=== PATIENT | male | born 1980 ===

== ENCOUNTER 2020-01-02 01:53 | Emergency (ER) | payer SELFPAY ==
--- NOTE | 2020-01-02 01:56 | ED_ITS ---
HPI - General Adult <Bhavesh Silva DO - Last Filed: 01/03/20 22:59> General Chief complaint: Altered Mental Status Stated complaint: doesn't know where he is at/low energy Time Seen by Provider: 01/02/20 01:55 Source: patient Mode of arrival: Wheelchair Limitations: no limitations History of Present Illness HPI narrative: 39-year-old male nonsmoker and nondrinker without any known medical problems was dropped off at the ER entrance and states that he does not know where he is, feels very weak and has not slept in 6 days. He was apparently [place] wandering [place] and was brought here by a person that did not know him. He has no idea how he got here or why he feels this way. He denies alcohol or street drugs. He denies any injuries. He states he is homeless in all of his family is . He denies any suicidal or homicidal ideations. Patient asked repeatedly if he has friends or family we could call and he states they are all . He states his only mental health diagnosis is depression. He denies having a doctor or therapist. He is homeless. He is a terrible historian and very somnalent. Review of Systems <Bhavesh Silva DO - Last Filed: 01/03/20 22:59> Review of Systems ROS Unobtainable: Unobtainable due to mental status/LOC Patient History <Bhavesh Silva DO - Last Filed: 01/03/20 22:59> Social History Smoking Status: Former smoker Smoking Status: Former smoker Substance Use Type: does not use Exam <Bhavesh Silva DO - Last Filed: 01/03/20 22:59> Narrative Exam Narrative: GENERAL: [39] year old patient appears stated age. Disheveled and unkempt, sleepy but easily arousable HEAD: Atraumatic. Normocephalic. EYES: Pupils equal round and reactive. Extraocular motions intact. No scleral icterus. No injection or drainage. ENT: Nose without bleeding, purulent drainage. Throat without erythema, tonsil lar hypertrophy or exudate. Airway patent. NECK: Trachea midline. Non tender CARDIOVASCULAR: Bradycardia and rhythm without murmurs, gallops, or rubs. RESPIRATORY: Clear to auscultation. Breath sounds equal bilaterally. No wheezes, rales, or rhonchi. GASTROINTESTINAL: Abdomen soft, non-tender, nondistended. EXTREMITIES: No edema or joint tenderness. BACK: Nontender without deformity or crepitance. No flank tenderness. NEURO: AOx3. SKIN: No rash or erythema of visible areas Initial Vital Signs Initial Vital Signs: Vital Signs Temperature 96.9 F L 01/02/20 02:06 Pulse Rate 47 L 01/02/20 02:06 Respiratory Rate 10 L 01/02/20 02:06 Blood Pressure 111/68 01/02/20 02:06 Pulse Oximetry 97 01/02/20 02:06 <Fariha Baig MD - Last Filed: 01/02/20 07:15> Initial Vital Signs Initial Vital Signs: Vital Signs Temperature 96.9 F L 01/02/20 02:06 Pulse Rate 47 L 01/02/20 02:06 Respiratory Rate 10 L 01/02/20 02:06 Blood Pressure 111/68 01/02/20 02:06 Pulse Oximetry 97 01/02/20 02:06 Course <Bhavesh Silva DO - Last Filed: 01/03/20 22:59> Orders Ordered: Discontinued Medications Sodium Chloride (Normal Saline 0.9%) 1,000 mls @ 150 mls/hr IV CONT QUIANA Last Infusion: 01/02/20 07:57 Dose: 0 mls/hr Documented by: Admin: 01/02/20 02:14 Dose: 150 mls/hr Documented by: GEETHA Vital Signs Vital signs: Vital Signs - 8 hr 01/02/20 02:06 01/02/20 05:50 Temperature 96.9 F L Pulse Rate 47 L 55 L Respiratory Rate 10 L 20 Blood Pressure 111/68 Blood Pressure [Right Arm] 99/58 L Pulse Oximetry 97 95 <Fariha Baig MD - Last Filed: 01/02/20 07:15> Orders Ordered: Discontinued Medications Sodium Chloride (Normal Saline 0.9%) 1,000 mls @ 150 mls/hr IV CONT QUIANA Last Infusion: 01/02/20 07:57 Dose: 0 mls/hr Documented by: Admin: 01/02/20 02:14 Dose: 150 mls/hr Documented by: GEETHA Vital Signs Vital signs: Vital Signs - 8 hr 01/02/20 02:06 01/02/20 05:50 Temperature 96.9 F L Pulse Rate 47 L 55 L Respiratory Rate 10 L 20 Blood Pressure 111/68 Blood Pressure [Right Arm] 99/58 L Pulse Oximetry 97 95 Medical Decision Making <Bhaveshtimothy Silva DO - Last Filed: 01/03/20 22:59> Lab Data Result diagrams: 01/02/20 02:10 01/02/20 02:10 Labs: Lab Results 01/02/20 01/02/20 01/02/20 Range/Units 02:08 02:10 02:10 WBC (4.5-11.0) X10^3/uL RBC (4.5-5.9) X10^6/uL Hgb (13.5-17.5) g/dL Hct (41-53) % MCV (80-100) fL MCH (26-34) PG MCHC (30-36) % RDW (11.6-14.8) % Plt Count (150-400) X10^3/uL Neut % (Auto) (50-75) % Lymph % (Auto) (25-40) % [place] % (Auto) (3-14) % Eos % (Auto) (2-4) % Baso % (Auto) (0-2) % Neut # (Auto) (1601-2427) /uL Lymph # (Auto) (0251-4446) /uL [place] # (Auto) (0-900) /uL Eos # (Auto) (0-450) /uL Baso # (Auto) (0-100) /uL PT (10.1-12.7) SECONDS INR (0.9-1.3) APTT (26.4-36.2) SECONDS VBG pH 7.33 (7.33-7.43) VBG pCO2 47.6 (45-50) mmHg VBG pO2 55 H (35-45) mmHg VBG HCO3 25 (23-28) mmol/L VBG Total CO2 27 (24-29) mmol/L VBG O2 Saturation 86 H (70-75) % VBG Base Excess -1.0 L (0-4) mmol/L Sodium (137-145) mmol/L Potassium (3.4-5.1) mmol/L Chloride (98-107) mmol/L Carbon Dioxide (22-32) mmol/L BUN (9-20) mg/dL Creatinine (0.66-1.25) mg/dL Estimated GFR (>60) mL/min BUN/Creatinine Ratio (6-22) Glucose (70-100) mg/dL Serum Osmolality 281 Lactate (0.7-2.1) mmol/L Calcium (8.4-10.2) mg/dL Total Bilirubin (0.2-1.3) mg/dL AST (17-59) IU/L ALT (<50) IU/L Alkaline Phosphatase (38-126) U/L Ammonia (9-30) umol/L Total Creatine Kinase 375 H (55-170) U/L CK-MB (CK-2) 5.27 H (<2.37) ng/mL CK-MB (CK-2) Rel Index 1.4 L (1.5-5.0) % Troponin I < 0.012 (0.01-0.034) ng/mL Total Protein (6.3-8.2) g/dL Albumin (3.5-5.0) g/dL Globulin (1.7-4.1) g/dL Albumin/Globulin Ratio (1.0-2.8) TSH (0.47-4.68) uIU/mL Prolactin (3.7-17.9) ng/mL Urine Color Urine Appearance Urine pH (4.5-8.0) Ur Specific [place] (1.000-1.035) Urine Protein (Negative) Urine Glucose (UA) (Negative) g/dL Urine Ketones (NEGATIVE) Urine Occult Blood (Negative) Urine Nitrate (Negative) Urine Bilirubin (NEGATIVE) Urine Urobilinogen (0.2) E.U./dL Ur Leukocyte Esterase (NEGATIVE) Urine RBC (0-5/HPF) Urine WBC (0-5/HPF) Urine Bacteria (None) Ur Culture Indicated? Salicylates (<20) mg/dL U Opiates 300ng/mL cut (Negative) Ur Oxycodone Screen (Negative) Urine Methadone Screen (Negative) Acetaminophen (10-30) ug/mL Ur Barbiturates Screen (Negative) U Tricyclic Antidepress (Negative) Ur Phencyclidine Scrn (Negative) Ur Amphetamines Screen (Negative) U Methamphetamines Scrn (Negative) Ur MDMA Scrn (Ecstasy) (Negative) U Benzodiazepines Scrn (Negative) Urine Cocaine Screen (Negative) U Marijuana (THC) Screen (Negative) Ethyl Alcohol ( - 10) mg/dL Ketones (<0.27) mmol/L 01/02/20 01/02/20 01/02/20 Range/Units 02:10 02:10 02:10 WBC 7.7 (4.5-11.0) X10^3/uL RBC 4.73 (4.5-5.9) X10^6/uL Hgb 13.9 (13.5-17.5) g/dL Hct 40.8 L (41-53) % MCV 86.3 (80-100) fL MCH 29.5 (26-34) PG MCHC 34.2 (30-36) % RDW 15.0 H (11.6-14.8) % Plt Count 272 (150-400) X10^3/uL Neut % (Auto) 68.7 (50-75) % Lymph % (Auto) 22.4 L (25-40) % [place] % (Auto) 5.6 (3-14) % Eos % (Auto) 2.5 (2-4) % Baso % (Auto) 0.8 (0-2) % Neut # (Auto) 5300 (4955-7273) /uL Lymph # (Auto) 1700 (2484-3921) /uL [place] # (Auto) 400 (0-900) /uL Eos # (Auto) 200 (0-450) /uL Baso # (Auto) 100 (0-100) /uL PT 10.9 (10.1-12.7) SECONDS INR 1.0 (0.9-1.3) APTT 36 (26.4-36.2) SECONDS VBG pH (7.33-7.43) VBG pCO2 (45-50) mmHg VBG pO2 (35-45) mmHg VBG HCO3 (23-28) mmol/L VBG Total CO2 (24-29) mmol/L VBG O2 Saturation (70-75) % VBG Base Excess (0-4) mmol/L Sodium 137 (137-145) mmol/L Potassium 4.0 (3.4-5.1) mmol/L Chloride 104 (98-107) mmol/L Carbon Dioxide 28 (22-32) mmol/L BUN 16 (9-20) mg/dL Creatinine 0.78 (0.66-1.25) mg/dL Estimated GFR > 60.0 (>60) mL/min BUN/Creatinine Ratio 20.5 (6-22) Glucose 92 (70-100) mg/dL Serum Osmolality Lactate (0.7-2.1) mmol/L Calcium 9.1 (8.4-10.2) mg/dL Total Bilirubin 0.4 (0.2-1.3) mg/dL AST 47 (17-59) IU/L ALT 28 (<50) IU/L Alkaline Phosphatase 117 (38-126) U/L Ammonia (9-30) umol/L Total Creatine Kinase (55-170) U/L CK-MB (CK-2) (<2.37) ng/mL CK-MB (CK-2) Rel Index (1.5-5.0) % Troponin I (0.01-0.034) ng/mL Total Protein 7.2 (6.3-8.2) g/dL Albumin 4.1 (3.5-5.0) g/dL Globulin 3.1 (1.7-4.1) g/dL Albumin/Globulin Ratio 1.3 (1.0-2.8) TSH (0.47-4.68) uIU/mL Prolactin 30.5 H (3.7-17.9) ng/mL Urine Color Urine Appearance Urine pH (4.5-8.0) Ur Specific [place] (1.000-1.035) Urine Protein (Negative) Urine Glucose (UA) (Negative) g/dL Urine Ketones (NEGATIVE) Urine Occult Blood (Negative) Urine Nitrate (Negative) Urine Bilirubin (NEGATIVE) Urine Urobilinogen (0.2) E.U./dL Ur Leukocyte Esterase (NEGATIVE) Urine RBC (0-5/HPF) Urine WBC (0-5/HPF) Urine Bacteria (None) Ur Culture Indicated? Salicylates < 1.0 (<20) mg/dL U Opiates 300ng/mL cut (Negative) Ur Oxycodone Screen (Negative) Urine Methadone Screen (Negative) Acetaminophen < 10 L (10-30) ug/mL Ur Barbiturates Screen (Negative) U Tricyclic Antidepress (Negative) Ur Phencyclidine Scrn (Negative) Ur Amphetamines Screen (Negative) U Methamphetamines Scrn (Negative) Ur MDMA Scrn (Ecstasy) (Negative) U Benzodiazepines Scrn (Negative) Urine Cocaine Screen (Negative) U Marijuana (THC) Screen (Negative) Ethyl Alcohol < 10 ( - 10) mg/dL Ketones (<0.27) mmol/L 01/02/20 01/02/20 01/02/20 Range/Units 02:10 02:10 02:10 WBC (4.5-11.0) X10^3/uL RBC (4.5-5.9) X10^6/uL Hgb (13.5-17.5) g/dL Hct (41-53) % MCV (80-100) fL MCH (26-34) PG MCHC (30-36) % RDW (11.6-14.8) % Plt Count (150-400) X10^3/uL Neut % (Auto) (50-75) % Lymph % (Auto) (25-40) % [place] % (Auto) (3-14) % Eos % (Auto) (2-4) % Baso % (Auto) (0-2) % Neut # (Auto) (0833-8176) /uL Lymph # (Auto) (1111-8030) /uL [place] # (Auto) (0-900) /uL Eos # (Auto) (0-450) /uL Baso # (Auto) (0-100) /uL PT (10.1-12.7) SECONDS INR (0.9-1.3) APTT (26.4-36.2) SECONDS VBG pH (7.33-7.43) VBG pCO2 (45-50) mmHg VBG pO2 (35-45) mmHg VBG HCO3 (23-28) mmol/L VBG Total CO2 (24-29) mmol/L VBG O2 Saturation (70-75) % VBG Base Excess (0-4) mmol/L Sodium (137-145) mmol/L Potassium (3.4-5.1) mmol/L Chloride (98-107) mmol/L Carbon Dioxide (22-32) mmol/L BUN (9-20) mg/dL Creatinine (0.66-1.25) mg/dL Estimated GFR (>60) mL/min BUN/Creatinine Ratio (6-22) Glucose (70-100) mg/dL Serum Osmolality Lactate 0.6 L (0.7-2.1) mmol/L Calcium (8.4-10.2) mg/dL Total Bilirubin (0.2-1.3) mg/dL AST (17-59) IU/L ALT (<50) IU/L Alkaline Phosphatase (38-126) U/L Ammonia < 9 L (9-30) umol/L Total Creatine Kinase (55-170) U/L CK-MB (CK-2) (<2.37) ng/mL CK-MB (CK-2) Rel Index (1.5-5.0) % Troponin I (0.01-0.034) ng/mL Total Protein (6.3-8.2) g/dL Albumin (3.5-5.0) g/dL Globulin (1.7-4.1) g/dL Albumin/Globulin Ratio (1.0-2.8) TSH 7.17 H (0.47-4.68) uIU/mL Prolactin (3.7-17.9) ng/mL Urine Color Urine Appearance Urine pH (4.5-8.0) Ur Specific [place] (1.000-1.035) Urine Protein (Negative) Urine Glucose (UA) (Negative) g/dL Urine Ketones (NEGATIVE) Urine Occult Blood (Negative) Urine Nitrate (Negative) Urine Bilirubin (NEGATIVE) Urine Urobilinogen (0.2) E.U./dL Ur Leukocyte Esterase (NEGATIVE) Urine RBC (0-5/HPF) Urine WBC (0-5/HPF) Urine Bacteria (None) Ur Culture Indicated? Salicylates (<20) mg/dL U Opiates 300ng/mL cut (Negative) Ur Oxycodone Screen (Negative) Urine Methadone Screen (Negative) Acetaminophen (10-30) ug/mL Ur Barbiturates Screen (Negative) U Tricyclic Antidepress (Negative) Ur Phencyclidine Scrn (Negative) Ur Amphetamines Screen (Negative) U Methamphetamines Scrn (Negative) Ur MDMA Scrn (Ecstasy) (Negative) U Benzodiazepines Scrn (Negative) Urine Cocaine Screen (Negative) U Marijuana (THC) Screen (Negative) Ethyl Alcohol ( - 10) mg/dL Ketones (<0.27) mmol/L 01/02/20 01/02/20 01/02/20 Range/Units 02:10 02:23 02:23 WBC (4.5-11.0) X10^3/uL RBC (4.5-5.9) X10^6/uL Hgb (13.5-17.5) g/dL Hct (41-53) % MCV (80-100) fL MCH (26-34) PG MCHC (30-36) % RDW (11.6-14.8) % Plt Count (150-400) X10^3/uL Neut % (Auto) (50-75) % Lymph % (Auto) (25-40) % [place] % (Auto) (3-14) % Eos % (Auto) (2-4) % Baso % (Auto) (0-2) % Neut # (Auto) (7438-8519) /uL Lymph # (Auto) (8877-6038) /uL [place] # (Auto) (0-900) /uL Eos # (Auto) (0-450) /uL Baso # (Auto) (0-100) /uL PT (10.1-12.7) SECONDS INR (0.9-1.3) APTT (26.4-36.2) SECONDS VBG pH (7.33-7.43) VBG pCO2 (45-50) mmHg VBG pO2 (35-45) mmHg VBG HCO3 (23-28) mmol/L VBG Total CO2 (24-29) mmol/L VBG O2 Saturation (70-75) % VBG Base Excess (0-4) mmol/L Sodium (137-145) mmol/L Potassium (3.4-5.1) mmol/L Chloride (98-107) mmol/L Carbon Dioxide (22-32) mmol/L BUN (9-20) mg/dL Creatinine (0.66-1.25) mg/dL Estimated GFR (>60) mL/min BUN/Creatinine Ratio (6-22) Glucose (70-100) mg/dL Serum Osmolality Lactate (0.7-2.1) mmol/L Calcium (8.4-10.2) mg/dL Total Bilirubin (0.2-1.3) mg/dL AST (17-59) IU/L ALT (<50) IU/L Alkaline Phosphatase (38-126) U/L Ammonia (9-30) umol/L Total Creatine Kinase (55-170) U/L CK-MB (CK-2) (<2.37) ng/mL CK-MB (CK-2) Rel Index (1.5-5.0) % Troponin I (0.01-0.034) ng/mL Total Protein (6.3-8.2) g/dL Albumin (3.5-5.0) g/dL Globulin (1.7-4.1) g/dL Albumin/Globulin Ratio (1.0-2.8) TSH (0.47-4.68) uIU/mL Prolactin (3.7-17.9) ng/mL Urine Color Yellow Urine Appearance Clear Urine pH 6.5 (4.5-8.0) Ur Specific [place] 1.015 (1.000-1.035) Urine Protein Negative (Negative) Urine Glucose (UA) Negative (Negative) g/dL Urine Ketones Trace H (NEGATIVE) Urine Occult Blood Negative (Negative) Urine Nitrate Negative (Negative) Urine Bilirubin Negative (NEGATIVE) Urine Urobilinogen 0.2 (0.2) E.U./dL Ur Leukocyte Esterase Negative (NEGATIVE) Urine RBC None seen (0-5/HPF) Urine WBC None seen (0-5/HPF) Urine Bacteria None seen (None) Ur Culture Indicated? Cult not indicated Salicylates (<20) mg/dL U Opiates 300ng/mL cut Negative (Negative) Ur Oxycodone Screen Negative (Negative) Urine Methadone Screen Negative (Negative) Acetaminophen (10-30) ug/mL Ur Barbiturates Screen Negative (Negative) U Tricyclic Antidepress Negative (Negative) Ur Phencyclidine Scrn Negative (Negative) Ur Amphetamines Screen Negative (Negative) U Methamphetamines Scrn Negative (Negative) Ur MDMA Scrn (Ecstasy) Negative (Negative) U Benzodiazepines Scrn Negative (Negative) Urine Cocaine Screen Negative (Negative) U Marijuana (THC) Screen Negative (Negative) Ethyl Alcohol ( - 10) mg/dL Ketones 0.43 H (<0.27) mmol/L <Fariha Baig MD - Last Filed: 01/02/20 07:15> Lab Data Labs: Lab Results 01/02/20 01/02/20 01/02/20 Range/Units 02:08 02:10 02:10 WBC (4.5-11.0) X10^3/uL RBC (4.5-5.9) X10^6/uL Hgb (13.5-17.5) g/dL Hct (41-53) % MCV (80-100) fL MCH (26-34) PG MCHC (30-36) % RDW (11.6-14.8) % Plt Count (150-400) X10^3/uL Neut % (Auto) (50-75) % Lymph % (Auto) (25-40) % [place] % (Auto) (3-14) % Eos % (Auto) (2-4) % Baso % (Auto) (0-2) % Neut # (Auto) (9703-5428) /uL Lymph # (Auto) (1527-0518) /uL [place] # (Auto) (0-900) /uL Eos # (Auto) (0-450) /uL Baso # (Auto) (0-100) /uL PT (10.1-12.7) SECONDS INR (0.9-1.3) APTT (26.4-36.2) SECONDS VBG pH 7.33 (7.33-7.43) VBG pCO2 47.6 (45-50) mmHg VBG pO2 55 H (35-45) mmHg VBG HCO3 25 (23-28) mmol/L VBG Total CO2 27 (24-29) mmol/L VBG O2 Saturation 86 H (70-75) % VBG Base Excess -1.0 L (0-4) mmol/L Sodium (137-145) mmol/L Potassium (3.4-5.1) mmol/L Chloride (98-107) mmol/L Carbon Dioxide (22-32) mmol/L BUN (9-20) mg/dL Creatinine (0.66-1.25) mg/dL Estimated GFR (>60) mL/min BUN/Creatinine Ratio (6-22) Glucose (70-100) mg/dL Serum Osmolality 281 Lactate (0.7-2.1) mmol/L Calcium (8.4-10.2) mg/dL Total Bilirubin (0.2-1.3) mg/dL AST (17-59) IU/L ALT (<50) IU/L Alkaline Phosphatase (38-126) U/L Ammonia (9-30) umol/L Total Creatine Kinase 375 H (55-170) U/L CK-MB (CK-2) 5.27 H (<2.37) ng/mL CK-MB (CK-2) Rel Index 1.4 L (1.5-5.0) % Troponin I < 0.012 (0.01-0.034) ng/mL Total Protein (6.3-8.2) g/dL Albumin (3.5-5.0) g/dL Globulin (1.7-4.1) g/dL Albumin/Globulin Ratio (1.0-2.8) TSH (0.47-4.68) uIU/mL Prolactin (3.7-17.9) ng/mL Urine Color Urine Appearance Urine pH (4.5-8.0) Ur Specific [place] (1.000-1.035) Urine Protein (Negative) Urine Glucose (UA) (Negative) g/dL Urine Ketones (NEGATIVE) Urine Occult Blood (Negative) Urine Nitrate (Negative) Urine Bilirubin (NEGATIVE) Urine Urobilinogen (0.2) E.U./dL Ur Leukocyte Esterase (NEGATIVE) Urine RBC (0-5/HPF) Urine WBC (0-5/HPF) Urine Bacteria (None) Ur Culture Indicated? Salicylates (<20) mg/dL U Opiates 300ng/mL cut (Negative) Ur Oxycodone Screen (Negative) Urine Methadone Screen (Negative) Acetaminophen (10-30) ug/mL Ur Barbiturates Screen (Negative) U Tricyclic Antidepress (Negative) Ur Phencyclidine Scrn (Negative) Ur Amphetamines Screen (Negative) U Methamphetamines Scrn (Negative) Ur MDMA Scrn (Ecstasy) (Negative) U Benzodiazepines Scrn (Negative) Urine Cocaine Screen (Negative) U Marijuana (THC) Screen (Negative) Ethyl Alcohol ( - 10) mg/dL Ketones (<0.27) mmol/L 01/02/20 01/02/20 01/02/20 Range/Units 02:10 02:10 02:10 WBC 7.7 (4.5-11.0) X10^3/uL RBC 4.73 (4.5-5.9) X10^6/uL Hgb 13.9 (13.5-17.5) g/dL Hct 40.8 L (41-53) % MCV 86.3 (80-100) fL MCH 29.5 (26-34) PG MCHC 34.2 (30-36) % RDW 15.0 H (11.6-14.8) % Plt Count 272 (150-400) X10^3/uL Neut % (Auto) 68.7 (50-75) % Lymph % (Auto) 22.4 L (25-40) % [place] % (Auto) 5.6 (3-14) % Eos % (Auto) 2.5 (2-4) % Baso % (Auto) 0.8 (0-2) % Neut # (Auto) 5300 (9899-3897) /uL Lymph # (Auto) 1700 (7136-2836) /uL [place] # (Auto) 400 (0-900) /uL Eos # (Auto) 200 (0-450) /uL Baso # (Auto) 100 (0-100) /uL PT 10.9 (10.1-12.7) SECONDS INR 1.0 (0.9-1.3) APTT 36 (26.4-36.2) SECONDS VBG pH (7.33-7.43) VBG pCO2 (45-50) mmHg VBG pO2 (35-45) mmHg VBG HCO3 (23-28) mmol/L VBG Total CO2 (24-29) mmol/L VBG O2 Saturation (70-75) % VBG Base Excess (0-4) mmol/L Sodium 137 (137-145) mmol/L Potassium 4.0 (3.4-5.1) mmol/L Chloride 104 (98-107) mmol/L Carbon Dioxide 28 (22-32) mmol/L BUN 16 (9-20) mg/dL Creatinine 0.78 (0.66-1.25) mg/dL Estimated GFR > 60.0 (>60) mL/min BUN/Creatinine Ratio 20.5 (6-22) Glucose 92 (70-100) mg/dL Serum Osmolality Lactate (0.7-2.1) mmol/L Calcium 9.1 (8.4-10.2) mg/dL Total Bilirubin 0.4 (0.2-1.3) mg/dL AST 47 (17-59) IU/L ALT 28 (<50) IU/L Alkaline Phosphatase 117 (38-126) U/L Ammonia (9-30) umol/L Total Creatine Kinase (55-170) U/L CK-MB (CK-2) (<2.37) ng/mL CK-MB (CK-2) Rel Index (1.5-5.0) % Troponin I (0.01-0.034) ng/mL Total Protein 7.2 (6.3-8.2) g/dL Albumin 4.1 (3.5-5.0) g/dL Globulin 3.1 (1.7-4.1) g/dL Albumin/Globulin Ratio 1.3 (1.0-2.8) TSH (0.47-4.68) uIU/mL Prolactin 30.5 H (3.7-17.9) ng/mL Urine Color Urine Appearance Urine pH (4.5-8.0) Ur Specific [place] (1.000-1.035) Urine Protein (Negative) Urine Glucose (UA) (Negative) g/dL Urine Ketones (NEGATIVE) Urine Occult Blood (Negative) Urine Nitrate (Negative) Urine Bilirubin (NEGATIVE) Urine Urobilinogen (0.2) E.U./dL Ur Leukocyte Esterase (NEGATIVE) Urine RBC (0-5/HPF) Urine WBC (0-5/HPF) Urine Bacteria (None) Ur Culture Indicated? Salicylates < 1.0 (<20) mg/dL U Opiates 300ng/mL cut (Negative) Ur Oxycodone Screen (Negative) Urine Methadone Screen (Negative) Acetaminophen < 10 L (10-30) ug/mL Ur Barbiturates Screen (Negative) U Tricyclic Antidepress (Negative) Ur Phencyclidine Scrn (Negative) Ur Amphetamines Screen (Negative) U Methamphetamines Scrn (Negative) Ur MDMA Scrn (Ecstasy) (Negative) U Benzodiazepines Scrn (Negative) Urine Cocaine Screen (Negative) U Marijuana (THC) Screen (Negative) Ethyl Alcohol < 10 ( - 10) mg/dL Ketones (<0.27) mmol/L 01/02/20 01/02/20 01/02/20 Range/Units 02:10 02:10 02:10 WBC (4.5-11.0) X10^3/uL RBC (4.5-5.9) X10^6/uL Hgb (13.5-17.5) g/dL Hct (41-53) % MCV (80-100) fL MCH (26-34) PG MCHC (30-36) % RDW (11.6-14.8) % Plt Count (150-400) X10^3/uL Neut % (Auto) (50-75) % Lymph % (Auto) (25-40) % [place] % (Auto) (3-14) % Eos % (Auto) (2-4) % Baso % (Auto) (0-2) % Neut # (Auto) (1881-7975) /uL Lymph # (Auto) (9770-7280) /uL [place] # (Auto) (0-900) /uL Eos # (Auto) (0-450) /uL Baso # (Auto) (0-100) /uL PT (10.1-12.7) SECONDS INR (0.9-1.3) APTT (26.4-36.2) SECONDS VBG pH (7.33-7.43) VBG pCO2 (45-50) mmHg VBG pO2 (35-45) mmHg VBG HCO3 (23-28) mmol/L VBG Total CO2 (24-29) mmol/L VBG O2 Saturation (70-75) % VBG Base Excess (0-4) mmol/L Sodium (137-145) mmol/L Potassium (3.4-5.1) mmol/L Chloride (98-107) mmol/L Carbon Dioxide (22-32) mmol/L BUN (9-20) mg/dL Creatinine (0.66-1.25) mg/dL Estimated GFR (>60) mL/min BUN/Creatinine Ratio (6-22) Glucose (70-100) mg/dL Serum Osmolality Lactate 0.6 L (0.7-2.1) mmol/L Calcium (8.4-10.2) mg/dL Total Bilirubin (0.2-1.3) mg/dL AST (17-59) IU/L ALT (<50) IU/L Alkaline Phosphatase (38-126) U/L Ammonia < 9 L (9-30) umol/L Total Creatine Kinase (55-170) U/L CK-MB (CK-2) (<2.37) ng/mL CK-MB (CK-2) Rel Index (1.5-5.0) % Troponin I (0.01-0.034) ng/mL Total Protein (6.3-8.2) g/dL Albumin (3.5-5.0) g/dL Globulin (1.7-4.1) g/dL Albumin/Globulin Ratio (1.0-2.8) TSH 7.17 H (0.47-4.68) uIU/mL Prolactin (3.7-17.9) ng/mL Urine Color Urine Appearance Urine pH (4.5-8.0) Ur Specific [place] (1.000-1.035) Urine Protein (Negative) Urine Glucose (UA) (Negative) g/dL Urine Ketones (NEGATIVE) Urine Occult Blood (Negative) Urine Nitrate (Negative) Urine Bilirubin (NEGATIVE) Urine Urobilinogen (0.2) E.U./dL Ur Leukocyte Esterase (NEGATIVE) Urine RBC (0-5/HPF) Urine WBC (0-5/HPF) Urine Bacteria (None) Ur Culture Indicated? Salicylates (<20) mg/dL U Opiates 300ng/mL cut (Negative) Ur Oxycodone Screen (Negative) Urine Methadone Screen (Negative) Acetaminophen (10-30) ug/mL Ur Barbiturates Screen (Negative) U Tricyclic Antidepress (Negative) Ur Phencyclidine Scrn (Negative) Ur Amphetamines Screen (Negative) U Methamphetamines Scrn (Negative) Ur MDMA Scrn (Ecstasy) (Negative) U Benzodiazepines Scrn (Negative) Urine Cocaine Screen (Negative) U Marijuana (THC) Screen (Negative) Ethyl Alcohol ( - 10) mg/dL Ketones (<0.27) mmol/L 01/02/20 01/02/20 01/02/20 Range/Units 02:10 02:23 02:23 WBC (4.5-11.0) X10^3/uL RBC (4.5-5.9) X10^6/uL Hgb (13.5-17.5) g/dL Hct (41-53) % MCV (80-100) fL MCH (26-34) PG MCHC (30-36) % RDW (11.6-14.8) % Plt Count (150-400) X10^3/uL Neut % (Auto) (50-75) % Lymph % (Auto) (25-40) % [place] % (Auto) (3-14) % Eos % (Auto) (2-4) % Baso % (Auto) (0-2) % Neut # (Auto) (6197-0420) /uL Lymph # (Auto) (6719-1750) /uL [place] # (Auto) (0-900) /uL Eos # (Auto) (0-450) /uL Baso # (Auto) (0-100) /uL PT (10.1-12.7) SECONDS INR (0.9-1.3) APTT (26.4-36.2) SECONDS VBG pH (7.33-7.43) VBG pCO2 (45-50) mmHg VBG pO2 (35-45) mmHg VBG HCO3 (23-28) mmol/L VBG Total CO2 (24-29) mmol/L VBG O2 Saturation (70-75) % VBG Base Excess (0-4) mmol/L Sodium (137-145) mmol/L Potassium (3.4-5.1) mmol/L Chloride (98-107) mmol/L Carbon Dioxide (22-32) mmol/L BUN (9-20) mg/dL Creatinine (0.66-1.25) mg/dL Estimated GFR (>60) mL/min BUN/Creatinine Ratio (6-22) Glucose (70-100) mg/dL Serum Osmolality Lactate (0.7-2.1) mmol/L Calcium (8.4-10.2) mg/dL Total Bilirubin (0.2-1.3) mg/dL AST (17-59) IU/L ALT (<50) IU/L Alkaline Phosphatase (38-126) U/L Ammonia (9-30) umol/L Total Creatine Kinase (55-170) U/L CK-MB (CK-2) (<2.37) ng/mL CK-MB (CK-2) Rel Index (1.5-5.0) % Troponin I (0.01-0.034) ng/mL Total Protein (6.3-8.2) g/dL Albumin (3.5-5.0) g/dL Globulin (1.7-4.1) g/dL Albumin/Globulin Ratio (1.0-2.8) TSH (0.47-4.68) uIU/mL Prolactin (3.7-17.9) ng/mL Urine Color Yellow Urine Appearance Clear Urine pH 6.5 (4.5-8.0) Ur Specific [place] 1.015 (1.000-1.035) Urine Protein Negative (Negative) Urine Glucose (UA) Negative (Negative) g/dL Urine Ketones Trace H (NEGATIVE) Urine Occult Blood Negative (Negative) Urine Nitrate Negative (Negative) Urine Bilirubin Negative (NEGATIVE) Urine Urobilinogen 0.2 (0.2) E.U./dL Ur Leukocyte Esterase Negative (NEGATIVE) Urine RBC None seen (0-5/HPF) Urine WBC None seen (0-5/HPF) Urine Bacteria None seen (None) Ur Culture Indicated? Cult not indicated Salicylates (<20) mg/dL U Opiates 300ng/mL cut Negative (Negative) Ur Oxycodone Screen Negative (Negative) Urine Methadone Screen Negative (Negative) Acetaminophen (10-30) ug/mL Ur Barbiturates Screen Negative (Negative) U Tricyclic Antidepress Negative (Negative) Ur Phencyclidine Scrn Negative (Negative) Ur Amphetamines Screen Negative (Negative) U Methamphetamines Scrn Negative (Negative) Ur MDMA Scrn (Ecstasy) Negative (Negative) U Benzodiazepines Scrn Negative (Negative) Urine Cocaine Screen Negative (Negative) U Marijuana (THC) Screen Negative (Negative) Ethyl Alcohol ( - 10) mg/dL Ketones 0.43 H (<0.27) mmol/L Discharge Plan Departure Patient Disposition: Home Clinical Impression: Altered mental status Qualifiers: Altered mental status type: unspecified Qualified Code(s): R41.82 - Altered mental status, unspecified Discharge Date/Time: 01/02/20 12:52 Activity Restrictions/Additional Instructions: Thank you for coming in today He had a thorough evaluation last night that showed no specific medical in dications that require hospitalization. His left soundly overnight and this morning indicated that you actually do have space at [facility] and a room available for you. We have a cab arranged and will help you get back to [facility]. I wish you the best
[2020-01-02 02:06] VITALS: BP 111/68; PULSE 47; RESP 10; TEMP 36.1; O2SAT 97
--- NOTE | 2020-01-02 02:06 | DI.CT.S_ITS ---
PROCEDURE: CT HEAD/BRAIN WO CON INDICATIONS: Acute altered mental status TECHNIQUE: Noncontrast 4.5 mm thick angled axial sections acquired from the foramen magnum to the vertex, with coronal and sagittal reformats. For radiation dose reduction, the following was used: automated exposure control, adjustment of mA and/or kV according to patient size. COMPARISON: None. FINDINGS: Image quality: Excellent. CSF spaces: Basal cisterns are patent. No extra-axial fluid collections. Ventricles are normal in size and shape. Brain: No midline shift. No intracranial masses or hemorrhage. Cunningham-white matter interface is normal. Skull and face: Calvarium and visualized facial bones are intact, without suspicious lesions. Sinuses: Visualized sinuses and mastoids are clear. IMPRESSION: No acute intracranial disease process. Dictated by: Ting Dutta MD, PhD on 01/02/2020 at 7:29 Approved by: Ting Dutta MD, PhD on 01/02/2020 at 7:30
[2020-01-02] MEDS: SODIUM CHLORIDE 0.9% 1,000 ML 150 ML IV (02:14)
[2020-01-02 02:29] LABS: Bacteria Urine None Seen; RBC Urine None Seen (0-5/HPF); WBC Urine None Seen (0-5/HPF)
[2020-01-02 02:32] LABS: Appearance Urine UA CLEAR; Bilirubin Urine UA NEGATIVE (NEGATIVE); Color Urine UA YELLOW; Glucose Urine UA NEGATIVE (Negative); Ketones Urine UA TRACE (NEGATIVE); Leukocyte Esterase Urine UA NEGATIVE (NEGATIVE); Nitrite Urine UA NEGATIVE (Negative); Occult Blood Urine UA NEGATIVE (Negative); Protein Urine UA NEGATIVE (Negative); Specific Gravity Urine UA 1.015 (1.000-1.035); Urobilinogen Urine UA 0.2 E.U./dL (0.2); pH Urine UA 6.5 (4.5-8.0)
[2020-01-02 02:33] LABS: Add Manual Diff / Slide Review NO; Basophils Absolute Auto 100 /uL (0-100); Basophils Percent Auto 0.8 % (0-2); Eosinophils Absolute Auto 200 /uL (0-450); Eosinophils Percent Auto 2.5 % (2-4); Hematocrit 40.8 % (41-53); Hemoglobin 13.9 g/dL (13.5-17.5); Lymphocytes Absolute Auto 1700 /uL (1100-4500); Lymphocytes Percent Auto 22.4 % (25-40); Mean Corpuscular HGB Conc 34.2 % (30-36); Mean Corpuscular Hemoglobin 29.5 PG (26-34); Mean Corpuscular Volume 86.3 fL (80-100); Monocytes Absolute Auto 400 /uL (0-900); Monocytes Percent Auto 5.6 % (3-14); Neutrophils Absolute Auto 5300 /uL (1500-7000); Neutrophils Percent Auto 68.7 % (50-75); Platelet Count 272 X10^3/uL (150-400); Red Blood Cell Count 4.73 X10^6/uL (4.5-5.9); White Blood Cell Count 7.7 X10^3/uL (4.5-11.0)
[2020-01-02 02:36] LABS: UR Morphine/Opiate cutoff 300 Negative (Negative); Ur Creatinine 20 (Normal); Ur Specific Gravity 1.025 (Normal); Urine Amphetamines Negative (Negative); Urine Barbiturates Negative (Negative); Urine Benzodiazepines Negative (Negative); Urine Cocaine Negative (Negative); Urine MDMA Negative (Negative); Urine Methadone Negative (Negative); Urine Methamphetamines Negative (Negative); Urine Oxycodone Negative (Negative); Urine Phencyclidine Negative (Negative); Urine Tetrahydrocannabinol Negative (Negative); Urine Tricyclic Antidepressant Negative (Negative); Urine pH 5 (Normal)
[2020-01-02 02:37] LABS: Prothrombin Time 10.9 SECONDS (10.1-12.7)
[2020-01-02 02:39] LABS: Ammonia (NH3) < 9 umol/L (9-30)
[2020-01-02 02:40] LABS: Lactate (Lactic Acid) 0.6 mmol/L (0.7-2.1); PTT Partial Thromboplastin Tim 36 SECONDS (26.4-36.2)
[2020-01-02 02:48] LABS: Acetaminophen < 10 ug/mL (10-30); Alanine Aminotransferase 28 IU/L (<50); Albumin 4.1 g/dL (3.5-5.0); Albumin Globulin Ratio 1.3 (1.0-2.8); Alkaline Phosphatase 117 U/L (38-126); Aspartate Aminotransferase 47 IU/L (17-59); BUN Creatinine Ratio 20.5 (6-22); Bilirubin Total 0.4 mg/dL (0.2-1.3); Blood Urea Nitrogen 16 mg/dL (9-20); Calcium 9.1 mg/dL (8.4-10.2); Carbon Dioxide 28 mmol/L (22-32); Chloride 104 mmol/L (98-107); Creatine Kinase 375 U/L (55-170); Estimated Glomerular Filt Rate > 60.0 mL/min (>60); Ethanol (ETOH) < 10 mg/dL; Globulin 3.1 g/dL (1.7-4.1); Glucose 92 mg/dL (70-100); HEMOLYSIS < 15 (0-50); Salicylate < 1.0 mg/dL (<20); Sodium 137 mmol/L (137-145); Total Protein 7.2 g/dL (6.3-8.2)
[2020-01-02 02:51] LABS: Ketones (Beta-Hydroxybutyrate) 0.43 mmol/L (<0.27)
[2020-01-02 02:52] LABS: HCO3 VBG 25 mmol/L (23-28); Oxygen Saturation VBG 86 % (70-75); PCO2 VBG 47.6 mmHg (45-50); PO2 VBG 55 mmHg (35-45); Total CO2 VBG 27 mmol/L (24-29); pH VBG 7.33 (7.33-7.43)
[2020-01-02 02:52] LABS: Culture Indicated Urine Cult Not Indicated
[2020-01-02 03:01] LABS: Troponin I < 0.012 ng/mL (0.01-0.034)
[2020-01-02 03:04] LABS: CKMB % Relative Index 1.4 % (1.5-5.0); Creatine Kinase MB 5.27 ng/mL (<2.37); Prolactin 30.5 ng/mL (3.7-17.9)
[2020-01-02 03:26] LABS: Thyroid Stimulating Hormone 7.17 uIU/mL (0.47-4.68)
[2020-01-02 05:50] VITALS: BP 99/58; PULSE 55; RESP 20; O2SAT 95
[2020-01-02 09:48] VITALS: BP 106/56; PULSE 74; RESP 16; O2SAT 94
--- NOTE | 2020-01-02 11:54 | PC.NURSE ---
REEL FILM INSPECTOR IN RM WITH PT. PT ABLE TO GET UP AND USE RESTROOM INDEPENTLY.
[2020-01-02 12:11] LABS: Osmolality, Serum 281
[2020-01-02 12:50] VITALS: BP 118/68; PULSE 76; RESP 16; O2SAT 98
--- NOTE | 2020-01-02 15:51 | CM.SWNOTE ---
ERIKA Note: Received MUTUEL MACHINE OPERATOR consult from Emergency Department staff requesting consult for homelessness. Patient is a 39yr old male brought into ED with altered mental status? Apparently at time of arrival patient did not know where he was and was found wandering [place] [address]. No insurance noted on demographic sheet. Placed call to [facility] to check on mental health history and they report no record. Tox screen negative for illegal substances. Spoke with ED/RN and provider whom report patient has been sleeping since arrival at approximately 3:00AM. MUTUEL MACHINE OPERATOR met with patient around noon. Patient having lunch. Patient alert and appears oriented to place and time. Patient reports that he has been homeless for awhile. Patient admits to off/on methamphetamine use. Patient reports being awake for days. Patient could not answer on whether or not he has substance abuse problem. Patient does deny suicidal or homicidal ideation. MUTUEL MACHINE OPERATOR asked patient what services he believes he is in need of now. Patient requesting senior care. He reports that he left some of his belongings at [facility] [place] and would like to go back there. Provided patient with the ability to call [facility] and he had to leave message. Patient requesting assistance in returning to [facility] [place] this afternoon. Patient has no funding to assist with transport. Notified provider of the above. Patient denies need for community resources however, provided him with [employer] brochure and transport to be arranged through the ED for patient to go to [facility] [place] at [facility] [address] [address]. P: Patient requesting to go to [facility] today once he had slept. Patient reports that he has belongings there and hopes to be able to stay. Patient denies additional needs. ERIKA Veliz
== END 2020-01-02 12:52 | disposition home or self-care (01) ==
PROVIDERS: Emergency Medicine; Emergency Provider Emergency Medicine
DX: R41.82 Altered mental status, unspecified (principal); F32.9 Major depressive disorder, single episode, unspecified
CPT/HCPCS: 36415; 70450; 80053; 80305; 80320; 80329; 81001; 82009; 82140; 82550; 82553; 82805; 83605; 83930; 84146; 84443; 84484; 85025; 85610; 85730; 87040; 93005; 96360; 96361; 99284; G0480